=== PATIENT | female | born 1960 | race Caucasian/White ===

== ENCOUNTER 2016-11-10 19:08 | Emergency (ER) | payer OTHER ==
[2016-11-10 19:31] VITALS: BP 160/100; PULSE 68; O2SAT 97
--- NOTE | 2016-11-10 19:42 | ERPHSYRPT ---
- History of Present Illness Time Seen by Provider: 11/10/16 19:40 Source: patient Exam Limitations: no limitations Patient Subjective Stated Complaint: pt fell this afternoon injuring her left arm ,hit her right forehead and both knees -she has malik with movement of the right arm has abrasions to both knees and her forehead neg loc amulatory since the fall Triage Nursing Assessment: pt is awake and alert and able to answer questions no defrromities to left arm Physician History: pt fell this afternoon injuring her left arm ,hit her right forehead and both knees -she has malik with movement of the right arm has abrasions to both knees and her forehead no loss of consciousness ambulatory since the fall Occurred: just prior to arrival Method of Injury: fell Quality: sharpness Severity of Pain-Max: mild Severity of Pain-Current: mild Extremities Pain Location: forearm: left Modifying Factors: Improves With: nothing Associated Symptoms: none Allergies/Adverse Reactions: Penicillins Allergy (Verified 11/10/16 19:38) tetanus toxoid, adsorbed Adverse Reaction (Verified 11/10/16 19:39) Home Medications: Benazepril HCl [Lotensin] 1 tab BID 11/10/16 [History] Hx Tetanus, Diphtheria Vaccination/Date Given: No - Review of Systems Constitutional: No Symptoms Ears, Nose, & Throat: No Symptoms Respiratory: No Symptoms Cardiac: No Symptoms Abdominal/Gastrointestinal: No Symptoms Genitourinary Symptoms: No Symptoms Musculoskeletal: Fall Skin: No Symptoms Neurological: No Symptoms Psychological: No Symptoms - Past Medical History Pertinent Past Medical History: Yes Cardiac History: Hypertension - Past Surgical History Past Surgical History: Yes Female Surgical History: Tubal Ligation Other Surgical History: ablations - Social History Smoking Status: Never smoker Exposure to second hand smoke: No Drug Use: none Patient Lives Alone: No - Female History Hx Last Menstrual Period: na - Nursing Vital Signs Nursing Vital Signs: Initial Vital Signs Temperature 98 F 11/10/16 19:30 Pulse Rate 68 11/10/16 19:30 Respiratory Rate 16 11/10/16 19:30 Blood Pressure 160/100 11/10/16 19:30 O2 Sat by Pulse Oximetry 97 11/10/16 19:30 Pain Scale Pain Intensity 3 - Physical Exam General Appearance: no apparent distress Eyes, Ears, Nose, Throat Exam: normal ENT inspection Neck Exam: normal inspection Cardiovascular/Respiratory Exam: chest non-tender Elbow/Forearm Exam: normal ROM, pain, soft tissue tenderness, No deformity, No limited ROM SpO2: 97 Oxygen Delivery: Room Air - Course Nursing assessment & vital signs reviewed: Yes - Radiology Exams Forearm X-ray Interpretation: Reviewed by me, Negative, No Fracture Ordered Tests: Active Orders 24 hr Category Date Time Status FOREARM Stat Exams 11/10/16 19:39 Taken - Progress Progress: unchanged Counseled pt/family regarding: diagnosis, need for follow-up, rad results - Departure Time of Disposition: 20:06 Departure Disposition: Home Clinical Impression: Forearm pain Qualifiers: Laterality: left Qualified Code(s): M79.632 - Pain in left forearm Condition: Stable Critical Care Time: No Referrals: [facility] BOSS [Primary Care Provider] - Instructions: Forearm Muscle Strain Additional Instructions: SPRAINS/STRAINS/CONTUSIONS 1. Rest the affected area as much as possible for the next few days. 2. Apply ice to the affected area for 20-30 minutes at a time, several times a day. 3. If you receive an elastic wrap, wear it only while awake for comfort and support. Re-wrap the elastic wrap if it feels too tight or too loose. 4. If swelling is present, elevate the affected part above the level of the heart for at least 2 to 3 days. 5. Use splints, slings, or crutches as instructed. 6. Watch for severe swelling, coldness, numbness, and discoloration of the fingers and toes. See your family physician or return to the emergency department if any of these are noted.
--- NOTE | 2016-11-10 23:33 | XRAY ---
Indication: Pain following fall. Comparison: None 2 views of the left forearm obtained. No bony, articular, or soft tissue abnormalities.
== END 2016-11-10 20:29 | disposition home or self-care (01) ==
LOC: ED 19:08
DX: M79.632 Pain in left forearm (principal); W19.XXXA Unspecified fall, initial encounter
CPT/HCPCS: 73090; 99283

== ENCOUNTER 2019-04-14 05:41 | Day surgery (SDC) | payer OTHER ==
[2019-04-14] MEDS ORDERED: Lactated Ringers 1,000 ML IV SCH (06:30)
[2019-04-14] MEDS ORDERED: DIPRIVAN 200 MG/20 ML IV ONE (08:05)
[2019-04-14 08:45] VITALS: O2SAT 99
[2019-04-14 08:56] VITALS: PULSE 52
[2019-04-14 09:16] VITALS: BP 139/79
--- NOTE | 2019-04-14 09:47 | OP ---
SURGERY DATE/TIME: 04/14/2019 0806 PREOPERATIVE DIAGNOSIS: Dysphagia. POSTOPERATIVE DIAGNOSIS: Grade I esophagitis. PROCEDURE: EGD. SURGEON: Dr. Green. ANESTHESIA: MAC. Medications given by anesthesia department. HISTORY: The patient is a 58 year-old white female who reported she was having problems with food seeming to stick in her esophagus particularly in the lower chest area. The patient was felt the need to have endoscopic examination. She was apprised of the risks of the procedure including the risk of perforation, phlebitis, untoward reaction to medication, bleeding and missed lesions. The patient verbalized her understanding and desired to have the procedure performed. DESCRIPTION OF PROCEDURE: The patient was given the medications by the anesthesia department. She had continuous pulse oximetry, ECG monitoring, intermittent blood pressure monitoring and tidal CO2 monitoring during the examination. She was placed in the left lateral decubitus position. A bite block was placed and the flexible Olympus gastroscope was used to intubate the oropharynx. The scope was easily introduced into the esophagus which appeared to be normal to the gastroesophageal junction where there appeared to be a small streak of what appeared to be erythema extending upwards from the gastroesophageal junction. The stomach was intubated and the gastric catherine was suctioned dry. The rugal folds distended nicely with insufflation of air. The scope was passed along the greater curvature of the stomach to the antrum. The pylorus encountered and intubated. The duodenum inspected and found to be normal. The scope is withdrawn towards the stomach. A retroflex view was obtained of the lesser curvature, fundus and cardia regions of the stomach and these appeared to be essentially normal. With careful withdrawal and careful inspection and no other mucosal lesions being encountered, the scope was removed from the patient who tolerated the procedure well and was sent back to outpatient recovery in good condition.
== END 2019-04-14 09:10 | disposition home or self-care (01) ==
LOC: SDC 05:41
PROVIDERS: ATTEND Family Medicine
DX: K20.9 Esophagitis, unspecified (principal)
CPT/HCPCS: J2704